=== PATIENT | female | born 1945 | race Caucasian/White ===

== ENCOUNTER 2016-10-18 12:46 | Emergency (ER) | payer OTHER ==
[~2016-10-18] VITALS: Ht 160 cm; Wt 64.5 kg
[~2016-10-18 12:46] MED LIST: ALPRAZOLAM PO; ALPRAZOLAM0.5 MG PO; ASPIRIN81 M1 PO; AUGMENTIN875 MG PO; Aspirin PO; BUPROPION XL300 MG PO; Bactrim,Septra DS 80 PO; CATAPRES-TTS 10.1 MG TD; CATAPRES0.2 MG PO; CLARITIN10 MG PO; COZAAR100 MG PO; COZAAR50 MG PO; CYCLOBENZAPRINE5 M1 PO; CYMBALTA60 MG PO; Cozaar PO; Cyclobenzaprine HCl PO; Cymbalta PO; DESYREL100 MG GT; DESYREL100 MG PO; DYAZIDE, MA1 CAPSULE PO; Duragesic TD; FLONASE16 G1 NS; FLORASTOR250 MG PO; Flonase BOTH NARES; GABAPENTIN300 MG PO; GLUCAGEN1 MG IM/SC; K-DUR20 MEQ PO; LANTUS 3 M100 UNITS/ SC; LEVEMIR FL100 UNIT/1 SC; LEVOTHROID,S0.125 MG PO; LEVOTHYROXINE100 MCG PO; LOSARTAN POTAS100 MG PO; Levothroid,Synthroid GT; Levothroid,Synthroid PO; MAXIDEX5 ML RIGHT EYE; MIRALAX, GLYCOL1 PK1 GT; MULTI-DAY VITA1 EACH PO; NAPROXEN500 MG PO; NEURONTIN300 MG PO; NEURONTIN50 MG/ML GT; NOVOLOG PE100 UNITS/ SC; NOVOLOG100 UNIT/1 SQ; Naprosyn PO; OMEPRAZOLE20 MG PO; PHENERGAN25 MG PR; POTASSIUM20 MEQ/11 GT; PRAVACHOL40 MG PO; PRILOSEC20 MG PO; Prilosec PO; RANITIDINE HCL150 MG PO; RISPERIDONE0.5 MG PO; ROXICODONE5 MG/5 ML GT; SIMVASTATIN40 M1 PO; Silvadene,SSD,Therma TP; TIMOPTIC-0100 DROP/1 RIGHT EYE; TRAZODONE HCL150 MG PO; TRAZODONE HCL50 MG PO; Trazodone HCl PO; Tylenol Regular Stre PO; VANCOMYCIN HCL125 MG PO; VENLAFAXINE HC100 MG PO; VICODIN,LORT1 TABLET PO; Vicodin,Lortab 5/500 PO; WELLBUTRIN; WELLBUTRIN XL300 MG PO; Wellbutrin GT; XALATAN 0.50 DROP/2. BOTH EYES; XALATAN2.5 ML RIGHT EYE; ZOFRAN4 MG PO; Zocor GT; Zocor PO
[2016-10-18 13:58] LABS: HEMATOCRIT 34.6 % (36.0-46.0); MCH 31.3 PG (29.0-34.0); MCV 89.6 FL (83-99); MEAN PLAT.VOLUME 9.5 uM^3 (9.5-12.4); PLATELET COUNT 230 K/uL (156-360); RBC DIS.WIDTH-CV 12.3 % (11.8-14.6); RBC DIS.WIDTH-SD 40.1 % (39-53); RED BLOOD COUNT 3.86 M/uL (3.80-5.20); WHITE BLOOD COUNT 12.4 K/uL (4.1-10.2)
[2016-10-18 14:06] LABS: CHLORIDE 98 mEq/L (99-109); POTASSIUM 3.6 mEq/L (3.7-5.4)
[2016-10-18 14:07] LABS: SODIUM 133 mEq/L (136-147)
[2016-10-18 14:08] LABS: GLUCOSE 147 mg/dL (70-99)
[2016-10-18 14:10] LABS: ANION GAP 8 MEQ/L (2-14)
[2016-10-18 14:12] LABS: GFR ESTIMATE (CALCULATED) > 59 mL/min/
[2016-10-18 14:13] LABS: UREA NITROGEN (BUN) 10 mg/dL (9-23)
[2016-10-18 14:18] LABS: TROP-I INTERPRETATION NEGATIVE; TROPONIN-I < 0.01 ng/mL (0.0-0.30)
[2016-10-18 16:03] VITALS: BP 166/87
== END 2016-10-18 16:24 | disposition home or self-care (01) ==
LOC: EME 12:46
PROVIDERS: Emergency Medicine
DX: E86.0 Dehydration (principal); R55 Syncope and collapse; F32.9 Major depressive disorder, single episode, unspecified; E11.9 Type 2 diabetes mellitus without complications; I10 Essential (primary) hypertension; K21.9 Gastro-esophageal reflux disease without esophagitis
CPT/HCPCS: 70450; 71020; 80048; 84484; 85027; 93005; 99281; 99284; J7030